=== PATIENT | male | born 1930 | race Caucasian/White ===

== ENCOUNTER 2016-12-04 13:12 | Outpatient (CLI) | payer MEDICARE ==
[2016-12-04 13:38] LABS: Anion Gap 17 mmol/L (10-20); BUN (Urea Nitrogen) 36 mg/dL (8.4-25.7); Calc. Creatinine Clearance 0 mL/min (70-130); Calcium 8.3 mg/dL (7.8-10.44); Carbon Dioxide 26 mmol/L (23-31); Chloride 97 mmol/L (98-107); Estimated GFR-MDRD 42; Potassium 3.8 mmol/L (3.5-5.1); Sodium 136 mmol/L (136-145)
[2016-12-04 13:39] LABS: Glucose 153 mg/dL (83-110)
== END 2016-12-04 13:13 | disposition home or self-care (01) ==
LOC: MADLAB 13:12
PROVIDERS: ATTEND Obstetrics & Gynecology
DX: E11.9 Type 2 diabetes mellitus without complications (principal); I10 Essential (primary) hypertension
CPT/HCPCS: 36415; 80048